=== PATIENT | male | born 1995 | race Caucasian/White ===

== ENCOUNTER 2019-05-07 16:00 | Emergency (ER) | payer OTHER ==
[2019-05-07 16:16] VITALS: BP 149/87
--- NOTE | 2019-05-07 16:53 | XRAY Report ---
Reason: crush injury by dino at work. Procedure Date: 05/07/2019 Accession Number: [id number] / [id number] Procedure: XR - Finger(s) RT CPT Code: FULL RESULT: EXAM: RIGHT INDEX. DIGIT RADIOGRAPHY EXAM DATE: 05/07/2019 04:46 PM. CLINICAL HISTORY: Crush injury by dino at work. COMPARISON: None. TECHNIQUE: 3 views. FINDINGS: Bones: Normal. No fracture or bone lesion. Joints: Normal. No subluxations. Soft Tissues: Normal. No soft tissue swelling. IMPRESSION: No acute displaced fracture or malalignment. Normal digit radiography. [facility]
--- NOTE | 2019-05-07 17:19 | ED Physician Documentation ---
History of Present Illness - Stated complaint Stated Complaint: RT FINGER INJ - Chief complaint Chief Complaint: Trauma Ext - History obtained from History obtained from: Patient - History of Present Illness Timing: Prior to arrival - Additonal information Additional information: Patient is a previously healthy, right-handed 23-year-old male presenting with crush injury to the right index finger after an airplane dino accidentally crushed it just prior to arrival. No other injuries. Patient reports extensive pain, swelling, bruising to the finger without significant abrasion, laceration, or bleeding. No nail damage. No change in sensation, strength, range of motion to the finger or hand. No other improving or worsening factors noted. Review of Systems Skin: reports: Abrasion (s), Other (Bruising) Musculoskeletal: reports: Extremity pain, Extremity swelling Neurologic: denies: Focal weakness, Numbness PD PAST MEDICAL HISTORY - Past Medical History Past Medical History: No - Past Surgical History Past Surgical History: No - Allergies Allergies/Adverse Reactions: Allergies Allergy/AdvReac Type Severity Reaction Status Date / Time No Known Drug Allergies Allergy Verified 05/07/19 16:16 PD ED PE NORMAL - Vitals Vital signs reviewed: Yes - General General: Alert and oriented X 3, No acute distress, Well developed/nourished - HEENT HEENT: Atraumatic, Moist mucous membranes - Neck Neck: Supple, no meningeal sign - Cardiac Cardiac: Strong equal pulses - Respiratory Respiratory: No respiratory distress - Derm Derm: Warm and dry, No rash, Other (Extensive bruising and swelling diffusely over right pointer finger with extremely small and mild superficial abrasion to DIP joint without damage to underlying structures or other complication. No other lacerations.) - Extremities Extremities: No deformity. No: No tenderness to palpate (Right index finger tender diffusely but no specific bony tenderness present.), No edema - Neuro Neuro: Alert and oriented X 3, No motor deficit, No sensory deficit - Psych Psych: Normal mood, Normal affect Results - Vitals Vitals: Vital Signs - 24 hr 05/07/19 16:14 Temperature 37.1 C Heart Rate 71 Respiratory 16 Rate Blood Pressure 149/87 H O2 Saturation 97 Oxygen O2 Source Room air PD MEDICAL DECISION MAKING - ED course Complexity details: reviewed results, considered differential, d/w patient ED course: Patient presenting with crush injury to right pointer finger. Plain films obtained which not find bony abnormality such as dislocation or fracture. No significant abrasion or laceration that will require repair and no concerns for damage to underlying structures including tendon. Discussed results and recommendations including supportive cares with patient. Also discussed return precautions and appropriate follow-up. Patient voiced understanding and is comfortable with discharge plan. Departure - Departure Disposition: 01 Home, Self Care Clinical Impression: Crushing injury Condition: Good Instructions: ED Sprain Finger, ED Crush Injury Finger No Fx Follow-Up: your,doctor [Other] - Within 3 Days Comments: Recommend carlos taping to other finger. Also recommend elevation, ice application, ibuprofen/Tylenol. Follow-up with primary care physician in next 2 to 3 days and return to ED sooner if experience worsening symptoms or have other concerns. Forms: Activity restrictions
== END 2019-05-07 18:00 | disposition home or self-care (01) ==
LOC: ED 16:00
DX: S67.190A Crushing injury of right index finger, initial encounter (principal); S60.021A Contusion of right index finger without damage to nail, initial encounter; W23.0XXA Caught, crushed, jammed, or pinched between moving objects, initial encounter; Y99.0 Civilian activity done for income or pay
CPT/HCPCS: 73140; 99282; 99283

== ENCOUNTER 2021-08-02 10:55 | Emergency (ER) | payer OTHER ==
[2021-08-02 11:03] VITALS: BP 133/69
--- NOTE | 2021-08-02 12:19 | XRAY Report ---
PROCEDURE: Shoulder 2 View LT INDICATIONS: pain after extension TECHNIQUE: 2 views of the shoulder were acquired. COMPARISON: None. FINDINGS: BONES: No acute, displaced fracture or dislocation. The glenohumeral and acromioclavicular joint spac es are maintained. SOFT TISSUES: No focal abnormality or appreciable pneumothorax. IMPRESSION: 1.No acute osseous abnormality. Reviewed by: Damaso Allen MD on 08/02/2021 12:18 PM PDT Approved by: Damaso Allen MD on 08/02/2021 12:18 PM PDT Station ID: [id number]
--- NOTE | 2021-08-02 12:24 | ED Physician Documentation ---
History of Present Illness - Stated complaint Stated Complaint: LT SHOULDER INJURY - Chief complaint Chief Complaint: Ext Problem - Additonal information Additional information: 26-year-old male presents emergency department for evaluation of acute left shoulder pain sustained this afternoon when reaching into an aircraft where he got hung up by his left shoulder for a brief moment in time. Now expressing pain that radiates from the anterior to posterior shoulder with reduced range of motion. Patient is right arm dominant. No history of previous injury. Denies neck pain. Review of Systems Constitutional: reports: Reviewed and negative Nose: reports: Reviewed and negative Throat: reports: Reviewed and negative Cardiac: reports: Reviewed and negative Respiratory: reports: Reviewed and negative GI: reports: Reviewed and negative : reports: Reviewed and negative Skin: reports: Reviewed and negative Musculoskeletal: reports: Extremity pain (Left shoulder) Neurologic: reports: Reviewed and negative PD PAST MEDICAL HISTORY - Past Medical History Past Medical History: Yes Cardiovascular: None Respiratory: None Neuro: None Endocrine/Autoimmune: None GI: None : None HEENT: None Psych: None Musculoskeletal: None Derm: None - Past Surgical History Past Surgical History: No - Present Medications Home Medications: Ambulatory Orders Medication Instructions Recorded Confirmed Ibuprofen [Motrin] 600 mg PO Q8H PRN #30 tab 08/02/21 - Allergies Allergies/Adverse Reactions: Allergies Allergy/AdvReac Type Severity Reaction Status Date / Time No Known Drug Allergies Allergy Verified 08/02/21 11:03 - Social History Does the pt smoke?: No Smoking Status: Never smoker Does the pt drink ETOH?: No Does the pt have substance abuse?: Yes - Immunizations Immunizations are current?: Yes - POLST Patient has POLST: No PD ED PE EXPANDED - General General: Alert, No acute distress - Extremities Extremities: Left shoulder (tenderness left posterior trapezius. Reduces abduction, normal adduction. Strength preserved. negative yeargasons, empty can) Results - Vitals Vitals: Vital Signs - 24 hr 08/02/21 11:00 Temperature 36.7 C Heart Rate 74 Respiratory 15 Rate Blood Pressure 133/69 H O2 Saturation 99 Oxygen O2 Source Room air - Rads (name of study) left shoulder Radiology: Final report received (no acute fx or dislocation) PD MEDICAL DECISION MAKING - ED course Complexity details: reviewed results, d/w patient ED course: 26 year old male here with acute left shoulder pain after getting "hung up" in an aircraft door today. no fx or dislocation. negative impingement testing. Overall nearly full ROM is preserved. Likely sprain, though RC pathology not fully ruled out. recommend NSAID and ICE. If not markedly better in 5 to 7 days may benefit from referral to orthopedics or MRI for further evaluation. Departure - Departure Disposition: 01 Home, Self Care Clinical Impression: Sprain of left shoulder joint Qualifiers: Encounter type: initial encounter Shoulder sprain type: unspecified sprain Qualified Code(s): S43.402A - Unspecified sprain of left shoulder joint, initial encounter Condition: Stable Record reviewed to determine appropriate education?: Yes Instructions: ED Sprain Shoulder, Exercise Shoulder Isometric Prescriptions: Ibuprofen [Motrin] 600 mg PO Q8H PRN #30 tab PRN Reason: Pain Comments: Freddie the x-ray of your shoulder does not show anything broken. However it is most likely that you have a significant sprain or strain of the shoulder. Most shoulder sprains will begin to resolve after 5 to 7 days. If not markedly better you should see [facility] and request referral to orthopedics as you may need an MRI of the shoulder. I do recommend that you practice the shoulder exercises as discussed at the [facility]. Please take the ibuprofen with food 2-3 times a day. Icing the shoulder over the next 48 to 72 hours may also be helpful.
[2021-08-02] MEDS ORDERED: KETOROLAC 60 MG/2 ML VIAL IM STA (12:27)
== END 2021-08-02 13:03 | disposition home or self-care (01) ==
LOC: ED 10:55
DX: S43.402A Unspecified sprain of left shoulder joint, initial encounter (principal); X50.9XXA Other and unspecified overexertion or strenuous movements or postures, initial encounter; Y93.89 Activity, other specified; Y99.0 Civilian activity done for income or pay
CPT/HCPCS: 96372; 99282; 99283